=== PATIENT | male | born 1980 | race Caucasian/White ===

== ENCOUNTER 2021-02-25 16:03 | Emergency (ER) | payer OTHER ==
[~2021-02-25] VITALS: Ht 180.3 cm; Wt 89.8 kg
[~2021-02-25 16:03] MED LIST: ACETAMINOPHEN-1 EAC1 PO; ADDERALL 10 MG10 MG PO; AMOXICILLIN 50500 MG PO; AMOXICILLIN500 M1 PO; DESYREL150 MG PO; HYDROCODON-ACE1 EAC7 PO; IBUPROFEN 800800 MG PO; KEFLEX500 MG PO; NOHOMEMEDICATIONS; NORCO 5-325 TA1 EACH PO; PROPRANOLOL 1010 MG PO; ULTRAM 50MG TAB50 MG PO; VENLAFAXIN75 MG/1 T2 PO; VICODIN PO
[2021-02-25 17:25] VITALS: BP 145/95
== END 2021-02-25 17:26 | disposition home or self-care (01) ==
LOC: M.ERS 16:03
DX: T80.90XA Unspecified complication following infusion and therapeutic injection, initial encounter (principal); Z79.899 Other long term (current) drug therapy